=== PATIENT | male | born 1955 | race Caucasian/White ===

== ENCOUNTER → 2017-01-09 | Day surgery (SDC) | payer MEDICARE ==
[~2017-01-09] MED LIST: ALBU17I INH; DOXY100T PO; GLIP5 PO; GLUCTAB PO; LACTATED RINGER'S 1000 ML INJ 1,000 ML ONE; LINE1TAB22 PO; PRED10 PO; PROPOFOL 500 MG/50 ML BTL IV ONE
--- NOTE | 2017-01-09 10:13 | GIPROC ---
[facility] [address] [facility], [address] COLONOSCOPY PROCEDURE REPORT EXAM DATE: 01/09/2017 PATIENT NAME: Alessandro Shepard MR #: [id number] BIRTHDATE: 1955 ENDOSCOPIST: Leoncio Renee MD ORDER #: [id number] BOXER OPERATOR: Tessa Velez RN STATUS: outpatient INDICATIONS: The patient is a 61 yr old male here for a colonoscopy due to average risk patient for colon cancer PROCEDURE PERFORMED: Colonoscopy with polypectomy MEDICATIONS: None and Per Anesthesia. PREP QUALITY: good ESTIMATED BLOOD LOSS: None CONSENT: The patient understands the risks and benefits of the procedure and understands that these risks include, but are not limited to: sedation, allergic reaction, infection, perforation and/or bleeding. Alternative means of evaluation and treatment include, among others: physical exam, x-rays, and/or surgical intervention. The patient elects to proceed with this endoscopic procedure. medical equipment was checked for proper function. Hand hygiene and appropriate measures for infection prevention was taken. After the risks, benefits and alternatives of the procedure were thoroughly explained, Informed consent was verified, confirmed and timeout was successfully executed by the treatment team. A digital exam revealed no abnormalities of the rectum The EC-[id number] ([id number] endoscope was introduced through the anus and advanced to the cecum, which was identified by both the appendix and ileocecal valve. The instrument was then slowly withdrawn as the colon was fully examined. COLON FINDINGS: Seven medium sized smooth sessile polyps were found in the ascending colon, transverse colon, descending colon, and sigmoid colon. A polypectomy was performed with a cold snare. The resection was complete and the polyp tissue was partially retrieved. The colon mucosa was otherwise normal. Retroflexed views revealed no abnormalities The scope was then completely withdrawn from the patient and the procedure terminated. PROCEDURE WITHDRAWAL TIME:21.0minutes ADVERSE EVENTS: There were no complications. IMPRESSIONS: 1. Seven medium sized sessile polyps were found in the ascending colon, transverse colon, descending colon, and sigmoid colon; polypectomy was performed with a cold snare 2. The colon mucosa was otherwise normal 3. Retroflexed views revealed no abnormalities 4. Revealed no abnormalities of the rectum RECOMMENDATIONS: 1. Await biopsy results. Biopsy results will not be ready for 7-10 days. If you don't hear from us in two weeks, call our office for results. 2. High fiber diet 3. Yearly hemoccult 4. Follow-up: GI Clinic PRN RECALL: Return 1 year Colonoscopy Leoncio Renee MD eSigned: Leoncio Renee MD 01/09/2017 10:12 AM cc: Scout Jones
== END | disposition home or self-care (01) ==
LOC: ESDC 07:56
PROVIDERS: ATTEND Internal Medicine Gastroenterology
DX: Z12.11 Encounter for screening for malignant neoplasm of colon (principal); E66.01 Morbid (severe) obesity due to excess calories; D12.2 Benign neoplasm of ascending colon; D12.3 Benign neoplasm of transverse colon; D12.4 Benign neoplasm of descending colon
CPT/HCPCS: 00810; 45385; 88305; J7120